=== PATIENT | male | born 1985 | race Caucasian/White ===

== ENCOUNTER 2018-04-20 11:59 | Emergency (ER) | payer OTHER ==
[2018-04-20] MEDS ORDERED: LIDOCAINE 1% W/EPI 1:100,000 MDV 50 ML VIAL ONE (13:18)
[2018-04-20] MEDS ORDERED: TETANUS & DIPHTHERIA TOX,ADULT 0.5 ML VIAL ONE ×2 (14:16→14:29)
--- NOTE | 2018-04-20 14:24 | EDPHYS ---
Physician Documentation [facility] Name: Armand Yao Age: 32 yrs Sex: Male : 1985 Arrival Date: 04/20/2018 Time: 12:00 Bed Treatment Private MD: None, None ED Physician Brandon Oviedo HPI: 04/20 14:25 This 32 yrs old Male presents to ER via Wheelchair with complaints of kb Laceration To Leg. 14:25 The patient has a laceration related to: training with a knife occurred at home, and kb there are no complicating factors. The injury was accidental. The laceration(s) is(are) located on the lateral aspect of left thigh. Onset: The symptoms/episode began/occurred just prior to arrival. Associated signs and symptoms: The patient has no apparent associated signs or symptoms. The patient has not experienced similar symptoms in the past. The patient has not recently seen a physician. Historical: - Allergies: 12:07 No Known Allergies; aj1 - Home Meds: 12:07 None [Active]; aj1 - PMHx: 12:07 None; aj1 - PSHx: 12:07 None; aj1 - Immunization history:: Last tetanus immunization: unknown. - Social history:: Smoking status: Patient/guardian denies using tobacco. - Ebola Screening: : Patient denies travel to an Ebola-affected area in the 21 days before illness onset. ROS: 14:25 Constitutional: Negative for fever, chills, and weight loss, Cardiovascular: Negative kb for chest pain, palpitations, and edema, Respiratory: Negative for shortness of breath, cough, wheezing, and pleuritic chest pain, Abdomen/GI: Negative for abdominal pain, nausea, vomiting, diarrhea, and constipation, MS/Extremity: Negative for injury and deformity, Neuro: Negative for headache, weakness, numbness, tingling, and seizure. 14:25 Skin: Positive for laceration(s), of the lateral aspect of left thigh. Exam: 14:25 Constitutional: This is a well developed, well nourished patient who is awake, alert, kb and in no acute distress. Head/Face: Normocephalic, atraumatic. Chest/axilla: Normal chest wall appearance and motion. Nontender with no deformity. No lesions are appreciated. Cardiovascular: Regular rate and rhythm with a normal S1 and S2. No gallops, murmurs, or rubs. Normal PMI, no JVD. No pulse deficits. Respiratory: Lungs have equal breath sounds bilaterally, clear to auscultation and percussion. No rales, rhonchi or wheezes noted. No increased work of breathing, no retractions or nasal flaring. Abdomen/GI: Soft, non-tender, with normal bowel sounds. No distension or tympany. No guarding or rebound. No evidence of tenderness throughout. MS/ Extremity: Pulses equal, no cyanosis. Neurovascular intact. Full, normal range of motion. Neuro: Awake and alert, GCS 15, oriented to person, place, time, and situation. Cranial nerves II-XII grossly intact. Motor strength 5/5 in all extremities. Sensory grossly intact. Cerebellar exam normal. Normal gait. 14:25 Skin: injury, laceration(s), the wound is approximately 6 cm(s), of the lateral aspect of left thigh, that can be described as clean, no foreign body, linear, with mild bleeding. Vital Signs: 12:07 BP 127 / 89; Pulse 80; Resp 16; Temp 97.9(TE); Pulse Ox 100% on R/A; Weight 83.91 kg aj1 (R); Height 5 ft. 8 in. (172.72 cm) (R); Pain 2/10; 12:07 Body Mass Index 28.13 (83.91 kg, 172.72 cm) aj1 Laceration: 14:16 Wound Repair of 6cm ( 2.4in ) partial thickness laceration to lateral aspect of left kb thigh. Irregularly shaped.. Distal neuro/vascular/tendon intact. Anesthesia: Wound infiltrated with 10 mls of 1% lidocaine w/ Epi. Wound prep: Extensive cleansing with betadine by me, Wound irrigation with saline by ks, Wound explored moderately, Copious irrigation. Skin closed with 2 4-0 Vicryl using interrupted sutures and sterile technique. Skin closed with 9 4-0 Prolene using interrupted sutures and sterile technique. Dressed with Neosporin, 4x4's, pressure dressing. Patient tolerated well. MDM: 12:07 Patient medically screened. 14:16 Data reviewed: vital signs, nurses notes. Data interpreted: Pulse oximetry: on room air kb is 100 %. Interpretation: normal. Counseling: I had a detailed discussion with the patient and/or guardian regarding: the historical points, exam findings, and any diagnostic results supporting the discharge/admit diagnosis, the need for outpatient follow up, a family practitioner, to return to the emergency department if symptoms worsen or persist or if there are any questions or concerns that arise at home. 04/20 14:16 Order name: Vicryl, Sutures; Complete Time: 14:22 kb 04/20 14:16 Order name: Prolene, Sutures; Complete Time: 14:22 kb 04/20 14:16 Order name: Dressing - Wound; Complete Time: 14:22 kb 04/20 14:16 Order name: Gloves, Sterile; Complete Time: 14:22 kb 04/20 14:16 Order name: Setup Suture Tray; Complete Time: 14:22 kb Administered Medications: 13:30 Drug: Lidocaine-Epinephrine -1%: (1:100,000) 1 vials {Note: administered approx 8-10 mL ss by Teresita العلي NP.} Volume: 20 ml; Route: Infiltration; 14:22 Drug: Tetanus-Diphtheria Toxoid Adult 0.5 ml {[employer]: [employer]. Exp: ss 04/18/2020. Lot #: [id number]. } Route: IM; Site: left deltoid; 14:30 Follow up: Response: No adverse reaction ss Disposition: 04/20/18 14:23 Discharged to Home. Impression: Laceration without foreign body of thigh. - Condition is Stable. - Discharge Instructions: Laceration Care, Adult, [id number]. - Prescriptions for Keflex 500 mg Oral Capsule - take 1 capsule by ORAL route every 8 hours for 10 days; 30 capsule. - Medication Reconciliation Form, Thank You Letter, Antibiotic Education, Prescription Opioid Use form. - Follow up: Emergency Department; When: As needed; Reason: Worsening of condition. Follow up: Private Physician; When: 2 - 3 days; Reason: Recheck today's complaints, Continuance of care, Re-evaluation by your physician. - Notes: Keep clean and dry Have sutures removed in 14 days Watch for signs of infection, including redness, warmth, drainage, swelling. Start antibiotics at onset of any of these symptoms Addendum: 04/23/2018 17:55 Co-signature as Attending Physician, Brandon Oviedo MD. g s Signatures: Teresita العلي, CORY-C [employer] P[employer] COATING MACHINE SETTER-CkMarielle Leal, RN RN aj1 Daya Lucas RN RN ss Brandon Oviedo MD MD gs Corrections: (The following items were deleted from the chart) 04/20 14:30 14:23 04/20/2018 14:23 Discharged to Home. Impression: Laceration without foreign body ss of thigh. Condition is Stable. Forms are Medication Reconciliation Form, Thank You Letter, Antibiotic Education, Prescription Opioid Use. Follow up: Emergency Department; When: As needed; Reason: Worsening of condition. Follow up: Private Physician; When: 2 - 3 days; Reason: Recheck today's complaints, Continuance of care, Re-evaluation by your physician. kb
--- NOTE | 2018-04-20 14:24 | ER ---
Nurse's Notes [facility] Name: Armand Yao Age: 32 yrs Sex: Male : 1985 Arrival Date: 04/20/2018 Time: 12:00 Bed Treatment Private MD: None, None Diagnosis: Laceration without foreign body of thigh Presentation: 04/20 12:05 Presenting complaint: Patient states: He was doing some training with a knife and aj1 accidentally sliced himself in the left outer thigh. Drsg in place, bleeding controlled at this time. Transition of care: patient was not received from another setting of care. Complicating Factors: There are no complicating factors for this patient. Onset of symptoms was April 20, 2018. Risk Assessment: Do you want to hurt yourself or someone else? Patient reports no desire to harm self or others. Initial Sepsis Screen: Does the patient meet any 2 criteria? No. Patient's initial sepsis screen is negative. Does the patient have a suspected source of infection? No. Patient's initial sepsis screen is negative. Care prior to arrival: None. 12:05 Method Of Arrival: Wheelchair aj1 12:05 Acuity: VIDAL 4 aj1 Triage Assessment: 12:07 General: Appears in no apparent distress. comfortable, Behavior is calm, cooperative, aj1 appropriate for age. Pain: Complains of pain in lateral aspect of left thigh. 12:07 Pain: Pain currently is 2 out of 10 on a pain scale. Neuro: Level of Consciousness is aj1 awake, alert, obeys commands. Cardiovascular: Patient's skin is warm and dry. Respiratory: Airway is patent Respiratory effort is even, unlabored, Respiratory pattern is regular, symmetrical. Injury Description: Laceration sustained to lateral aspect of left thigh. Historical: - Allergies: 12:07 No Known Allergies; aj1 - Home Meds: 12:07 None [Active]; aj1 - PMHx: 12:07 None; aj1 - PSHx: 12:07 None; aj1 - Immunization history:: Last tetanus immunization: unknown. - Social history:: Smoking status: Patient/guardian denies using tobacco. - Ebola Screening: : Patient denies travel to an Ebola-affected area in the 21 days before illness onset. Screenin:00 Abuse screen: Denies threats or abuse. Denies injuries from another. Nutritional ss screening: No deficits noted. Tuberculosis screening: Never had TB. Fall Risk None identified. Assessment: 13:00 General: Appears in no apparent distress. comfortable, Behavior is calm, cooperative, ss Denies fever, feeling ill, fatigue, chills. Pain: Complains of pain in lateral aspect of left thigh Pain currently is 2 out of 10 on a pain scale. Quality of pain is described as tender, Pain began 1 hour ago. Is continuous. Neuro: Level of Consciousness is awake, alert, obeys commands, Oriented to person, place, time, situation, Speech is normal. Cardiovascular: Capillary refill < 3 seconds is brisk in bilateral fingers Patient's skin is warm and dry. Respiratory: Airway is patent Respiratory effort is even, unlabored, Respiratory pattern is regular, symmetrical. GI: Abdomen is non-distended, Patient currently denies abdominal pain, diarrhea, nausea, vomiting. : No signs and/or symptoms were reported regarding the genitourinary system. EENT: Nares are clear Oral mucosa is moist. Derm: Skin is intact, is healthy with good turgor, Skin is dry, Skin is pink, warm \T\ dry. normal. Musculoskeletal: Circulation, motion, and sensation intact. Range of motion: intact in all extremities, Swelling present in lateral aspect of left thigh. Injury Description: Laceration sustained to lateral aspect of left thigh is 2.6 to 7.5 cm long, was sustained 1-2 hours ago. is bleeding a dressing was applied. Vital Signs: 12:07 BP 127 / 89; Pulse 80; Resp 16; Temp 97.9(TE); Pulse Ox 100% on R/A; Weight 83.91 kg aj1 (R); Height 5 ft. 8 in. (172.72 cm) (R); Pain 2/10; 12:07 Body Mass Index 28.13 (83.91 kg, 172.72 cm) aj1 ED Course: 12:00 Patient arrived in ED. sb2 12:00 None, None is Private Physician. sb2 12:06 Triage completed. aj1 12:07 Teres[facility]C [facility]. kb 12:07 Brandon Oviedo MD is Attending Physician. kb 12:07 Arm band placed on Patient placed in waiting room, Patient notified of wait time. aj1 13:00 Patient has correct armband on for positive identification. Bed in low position. Call ss light in reach. 13:39 Daya Lucas, RN is Primary Nurse. ss 13:42 Assist provider with laceration repair on lateral aspect of left thigh that was between ss 2.6 to 7.5 cm using sutures. Set up tray. Performed by Teresita PAK Dressed with 4X4s, Kerlix, Neosporin, Patient tolerated well. Patient did not have IV access during this emergency room visit. Administered Medications: 13:30 Drug: Lidocaine-Epinephrine -1%: (1:100,000) 1 vials {Note: administered approx 8-10 mL ss by Teresita العلي, KILN TRANSFER OPERATOR.} Volume: 20 ml; Route: Infiltration; 14:22 Drug: Tetanus-Diphtheria Toxoid Adult 0.5 ml {[employer]: [employer]. Exp: ss 04/18/2020. Lot #: [id number]. } Route: IM; Site: left deltoid; 14:30 Follow up: Response: No adverse reaction ss Outcome: 14:23 Discharge ordered by . kb 14:30 Discharged to home ambulatory. ss 14:30 Condition: good 14:30 Discharge instructions given to patient, family, Instructed on discharge instructions, follow up and referral plans. medication usage, Demonstrated understanding of instructions, follow-up care, medications, Prescriptions given X 1. 14:30 Patient left the ED. ss Signatures: Teresita العلي FNP-C FNP-Marielle Wagner RN RN aj1 Daya Lucas, RN RN Yvette Araiza sb2 Corrections: (The following items were deleted from the chart) 12:08 12:05 Presenting complaint: Patient states: He was doing some training with a knife and aj1 accidentally sliced himself in the right outer thigh. Drsg in place, bleeding controlled at this time. aj1
== END 2018-04-20 14:30 | disposition home or self-care (01) ==
LOC: ER 11:59
PROC: 0JQM0ZZ Repair Left Upper Leg Subcutaneous Tissue and Fascia, Open Approach (ICD-10-PCS; principal; 2018-04-20)
DX: S71.112A Laceration without foreign body, left thigh, initial encounter (principal); W26.0XXA Contact with knife, initial encounter; Y93.9 Activity, unspecified; Y92.009 Unspecified place in unspecified non-institutional (private) residence as the place of occurrence of the external cause; Z23 Encounter for immunization
CPT/HCPCS: 90714; 99283